=== PATIENT | male | born 1975 | race Two or more races ===

== ENCOUNTER 2022-08-18 17:43 | Emergency (ER) | payer SELFPAY ==
[~2022-08-18] VITALS: Ht 175.3 cm; Wt 90.7 kg
[2022-08-18 17:58] VITALS: BP 146/98
--- NOTE | 2022-08-18 19:04 | NUR ---
PT IS MEDICALLY CLEARED. D/C TO [employer] OFFICER IN STABLE CONDITION.
== END 2022-08-18 19:06 ==
LOC: ER 17:50
DX: Z20.822 Contact with and (suspected) exposure to COVID-19
CPT/HCPCS: 99283; 87426; C9803